=== PATIENT | male | born 1970 | race Caucasian/White ===

== ENCOUNTER 2017-04-22 01:55 | Inpatient (IN) ==
[2017-04-22] MEDS ORDERED: VANCOMYCIN INJ 1,000 MG in SODIUM CHLORIDE 0.9% 250 ML IV STA (02:50)
[2017-04-22] MEDS ORDERED: CLINDAMYCIN INJ 600 MG in PREMIX 1 EACH IV STA (02:50)
[2017-04-22] MEDS ORDERED: HYDROmorphone 2 MG/1 ML VIAL IV ONE (02:52)
[2017-04-22] MEDS ORDERED: ONDANSETRON 4 MG/2 ML VIAL IV STA (02:52)
[2017-04-22 03:00] LABS: Basophils # 0.1 10*3/uL (0.0-0.2); Basophils % 0.7 % (0.0-0.8); Eosinophils # 0.2 10*3/uL (0.0-0.87); Eosinophils % 1.4 % (0.00-10.9); Hemoglobin 14.5 GM/DL (14.0-18.0); Immature Granulocytes % 0.4 %; Immature Granulocytes Absolute 0.05 #; Lymphocytes # 1.4 10*3/uL (1.4-4.0); Lymphocytes % 11.5 % (21.2-54.2); Mean Corpuscular HGB Conc 33.7 GM/DL (32-36); Mean Corpuscular Hemoglobin 27 PG (27-34); Mean Corpuscular Volume 80.2 FL (87-102); Mean Platelet Volume 8.7 FL (9.6-12.0); Monocytes # 1.5 10*3/uL (0.11-0.8); Monocytes % 12.5 % (1.7-12.7); Neutrophils # 8.7 10*3/uL (1.4-7.4); Neutrophils % 73.5 % (38.7-73.9); Platelet Count 313 T/CUMM (130-400); Red Blood Count 5.36 MC/CUMM (3.8-5.5); Red Cell Distribution Width 14.8 % (9.3-17.3); White Blood Count 11.8 T/CUMM (4-12)
[2017-04-22] MEDS ORDERED: ONDANSETRON 4 MG/2 ML VIAL ONE ×2 (03:15→09:30)
[2017-04-22] MEDS ORDERED: CLINDAMYCIN INJ 50 ML IV ONE (03:16)
[2017-04-22] MEDS ORDERED: HYDROmorphone 2 MG/1 ML VIAL ONE ×2 (03:16→09:30)
[2017-04-22 03:26] LABS: Albumin 3.7 G/DL (3.4-5.0); Bilirubin,Total 0.5 MG/DL (0.2-1.0); Calcium 8.8 MG/DL (8.5-10.1); Lactic Acid 1.1 MMOL/L (0.4-2.0); Osmolality,Calculated 265.4 MOS/KG (273-304); Total Protein 8.5 G/DL (6.4-8.3)
[2017-04-22] MEDS ORDERED: VANCOMYCIN 1,000 MG VIAL ONE (03:51)
[2017-04-22] MEDS ORDERED: DEXTROSE 50% 25 GM/50 ML VIAL IV PRN (04:22)
[2017-04-22] MEDS ORDERED: ACETAMINOPHEN 325 MG TABLET PO PRN (04:22)
[2017-04-22] MEDS ORDERED: GLUCAGON 1 MG VIAL IM PRN (04:22)
[2017-04-22] MEDS ORDERED: ONDANSETRON 4 MG/2 ML VIAL IV PRN ×2 (04:22→09:35)
[2017-04-22] MEDS: SODIUM CHLORIDE 0.9% 1,000 ML IV SCH ×3 (04:33→19:38)
[2017-04-22] MEDS ORDERED: PIPERACILLIN/TAZOBACTAM 3,375 MG in SODIUM CHLORIDE 0.9% 100 ML IV SCH (06:00)
[2017-04-22] MEDS ORDERED: INSULIN REGULAR 100 UNIT/ML SUBCUT SCH (07:30)
[2017-04-22] MEDS: PANTOPRAZOLE 40 MG TABLET PO SCH ×2 (07:45→10:25)
[2017-04-22] MEDS ORDERED: LISINOPRIL 10 MG TABLET PO SCH (09:00)
[2017-04-22] MEDS ORDERED: PANTOPRAZOLE 40 MG TABLET PO SCH (09:00)
[2017-04-22] MEDS ORDERED: PROPOFOL 200 MG/20 ML VIAL IV ONE (09:16)
[2017-04-22] MEDS ORDERED: SEVOFLURANE 1 UNIT/15 MINUTE INH ONE (09:16)
[2017-04-22] MEDS ORDERED: fentaNYL 100 MCG/2 ML VIAL ONE (09:16)
[2017-04-22] MEDS ORDERED: SUCCINYLCHOLINE 200 MG/10 ML VIAL ONE (09:17)
[2017-04-22] MEDS ORDERED: MIDAZOLAM 2 MG/2 ML VIAL ONE (09:17)
[2017-04-22] MEDS ORDERED: ROCURONIUM 100 MG/10 ML VIAL IV ONE (09:17)
[2017-04-22] MEDS ORDERED: ACETAMINOPHEN 1,000 MG/100 ML VIAL IV ONE (09:17)
[2017-04-22] MEDS: HYDROmorphone 2 MG/1 ML VIAL IV PRN ×4 (09:31→19:30)
[2017-04-22] MEDS ORDERED: CLINDAMYCIN INJ 600 MG in PREMIX 1 EACH IV SCH (11:00)
[2017-04-22] MEDS: INSULIN REGULAR 100 UNIT/ML SUBCUT SCH ×3 (12:54→20:38)
[2017-04-22] MEDS: ASPIRIN EC 81 MG TABLET PO SCH (12:55)
[2017-04-22] MEDS: SULFAMETHOX/TRIMETHOPRIM 800-160 MG TABLET PO SCH ×2 (13:15→20:38)
[2017-04-22] MEDS: LISINOPRIL 10 MG TABLET PO SCH (20:38)
[2017-04-22] MEDS: ENOXAPARIN 40 MG/0.4 ML SYRINGE SUBCUT SCH (20:38)
[2017-04-22] MEDS: ROSUVASTATIN 10 MG TABLET PO SCH (20:38)
[2017-04-23] MEDS: HYDROmorphone 2 MG/1 ML VIAL IV PRN ×2 (02:19→10:46)
[2017-04-23 07:51] LABS: Basophils # 0.1 10*3/uL (0.0-0.2); Eosinophils # 0.3 10*3/uL (0.0-0.87); Eosinophils % 3.9 % (0.00-10.9); Hematocrit 37.5 VOL% (42.0-52.0); Immature Granulocytes % 0.6 %; Immature Granulocytes Absolute 0.04 #; Lymphocytes # 1.9 10*3/uL (1.4-4.0); Lymphocytes % 26.5 % (21.2-54.2); Mean Corpuscular HGB Conc 32.8 GM/DL (32-36); Mean Corpuscular Hemoglobin 27 PG (27-34); Mean Corpuscular Volume 82.8 FL (87-102); Monocytes # 1.5 10*3/uL (0.11-0.8); Monocytes % 20.6 % (1.7-12.7); Neutrophils # 3.4 10*3/uL (1.4-7.4); Neutrophils % 47.4 % (38.7-73.9); Platelet Count 284 T/CUMM (130-400); Red Blood Count 4.53 MC/CUMM (3.8-5.5); Red Cell Distribution Width 15.1 % (9.3-17.3)
[2017-04-23] MEDS: INSULIN REGULAR 100 UNIT/ML SUBCUT SCH ×4 (08:01→21:31)
[2017-04-23 08:05] LABS: Hemoglobin 12.3 GM/DL (14.0-18.0); White Blood Count 7.1 T/CUMM (4-12)
[2017-04-23 08:22] LABS: Alanine Aminotransferase 27 U/L (16-61); Alkaline Phosphatase 41 U/L (45-117); Aspartate Amino Transferase 21 U/L (0-37); Bilirubin,Total < 0.39 MG/DL (0.2-1.0); Blood Urea Nitrogen 10 MG/DL (7-18); Calcium 8.1 MG/DL (8.5-10.1); Glucose 88 MG/DL (74-106); Osmolality,Calculated 270.8 MOS/KG (273-304); Potassium 4.1 MMOL/L (3.5-5.1); Sodium 137 MMOL/L (136-145); Total Protein 6.7 G/DL (6.4-8.3)
[2017-04-23 08:24] LABS: Band Neutrophils 1 % (0-10); Eosinophils 2 % (0-10); Hypochromasia 1+; Lymphocytes 24 % (20-55); Microcytosis Slight; Segmented Neutrophils 53 % (50-85); Total Cells Counted 100
[2017-04-23 08:25] LABS: Platelet Estimate Normal
[2017-04-23] MEDS: PANTOPRAZOLE 40 MG TABLET PO SCH (09:36)
[2017-04-23] MEDS: ASPIRIN EC 81 MG TABLET PO SCH (09:36)
[2017-04-23] MEDS: SULFAMETHOX/TRIMETHOPRIM 800-160 MG TABLET PO SCH ×2 (09:37→21:30)
[2017-04-23] MEDS ORDERED: ALUMINUM/MAGNES/SIMETH MAX STR 30 ML UDCUP PO PRN (17:04)
[2017-04-23] MEDS: SODIUM CHLORIDE 0.9% 1,000 ML IV SCH (18:28)
[2017-04-23] MEDS: ROSUVASTATIN 10 MG TABLET PO SCH (21:30)
[2017-04-23] MEDS: LISINOPRIL 10 MG TABLET PO SCH (21:30)
[2017-04-23] MEDS: ENOXAPARIN 40 MG/0.4 ML SYRINGE SUBCUT SCH (21:30)
[2017-04-24] MEDS: SODIUM CHLORIDE 0.9% 1,000 ML IV SCH ×2 (01:35→19:44)
[2017-04-24] MEDS: INSULIN REGULAR 100 UNIT/ML SUBCUT SCH ×2 (09:15→19:45)
[2017-04-24] MEDS: SULFAMETHOX/TRIMETHOPRIM 800-160 MG TABLET PO SCH (09:28)
[2017-04-24] MEDS: PANTOPRAZOLE 40 MG TABLET PO SCH (09:28)
[2017-04-24] MEDS: ASPIRIN EC 81 MG TABLET PO SCH (09:30)
[2017-04-24 12:28] VITALS: BP 116/75
== END 2017-04-24 13:10 | disposition home or self-care (01) | DRG 603 ==
LOC: N.ED 01:55 → N.EDINP 03:19 → N.3E 03:39
PROVIDERS: ADMIT Surgery; ATTEND Surgery